=== PATIENT | male | born 1960 | race Caucasian/White ===

== ENCOUNTER 2018-05-31 12:15 | Emergency (ER) | payer BC ==
--- NOTE | 2018-05-31 12:24 | EDM.PDOC ---
ED HPI GENERAL MEDICAL PROBLEM - General Chief Complaint: Neck Problem Stated Complaint: PAIN IN NECK DOWN BACK Time Seen by Provider: 05/31/18 12:16 Source of Information: Reports: Patient History Limitations: Reports: No Limitations - History of Present Illness INITIAL COMMENTS - FREE TEXT/NARRATIVE: HISTORY AND PHYSICAL: History of present illness: Patient is a 57-year-old male who presents to the emergency room with complaints of low neck pain that radiates into his right shoulder and down the arm. He states he has noticed this discomfort for approximately 6 months that has progressively become more frequent and more bothersome. Over the past several days he states that this is extremely uncomfortable and decided to get evaluated. He denies any injury, trauma or recent falls. Review of systems: As per history of present illness and below otherwise all systems reviewed and negative. Past medical history: As per history of present illness and as reviewed below otherwise noncontributory. Surgical history: As per history of present illness and as reviewed below otherwise noncontributory. Social history: See social history for further information Family history: As per history of present illness and as reviewed below otherwise noncontributory. Physical exam: General: HEENT: Atraumatic, normocephalic, pupils equal and reactive bilaterally, negative for conjunctival pallor or scleral icterus, mucous membranes moist, throat clear, neck supple, nontender, trachea midline. No drooling or trismus noted. No meningeal signs Lungs: Clear to auscultation, breath sounds equal bilaterally, chest nontender. Heart: S1S2, regular rate and rhythm without overt murmur Abdomen: Soft, nondistended, nontender. Negative for masses or hepatosplenomegaly. Negative for costovertebral tenderness. Pelvis: Stable nontender. Genitourinary: Deferred. Rectal: Deferred. Skin: Intact, warm, dry. No lesions or rashes noted. Extremities: Atraumatic, moves all extremities without difficulty or deficits, full range of motion, negative for cords or calf pain. Neurovascular unremarkable. C-spine/Back: No pinpoint vertebral tenderness upon palpation. No crepitus, step -offs or obvious deformities. Patient is ambulatory without any difficulty or deficits. He denies any urinary or fecal incontinence. Denies any numbness or tingling to his distal extremities. He has full strength and range of motion of all extremities. Does have some muscular tenderness to the right trapezius muscle into the shoulder/scapular area. Neuro: Awake, alert, oriented. Cranial nerves II through XII unremarkable. Cerebellum unremarkable. Motor and sensory unremarkable throughout. Exam nonfocal. Notes: Patient did get some relief with the IM injections. CT shows mild degenerative changes without any acute findings. I did discuss the limitations of diagnostics through the emergency room and encouraged him to follow-up with his primary care provider. He states he does go home to [place] the following week and will follow up with his primary care provider for further evaluation and management. Concerned he may have possible nerve impingement or muscular strain. Supportive care measures were reviewed and discussed. Signs and symptoms that would prompt him to return to the emergency room were reviewed and discussed. Diagnostics: C-spine CT Therapeutics: Solu-Medrol IM, Toradol. Prescription: Medrol Dosepak Flexeril (#21) Impression: Neck Pain Muscular Strain, neck Plan: 1. Gentle heat and stretching to the area. 2. Take your medications as prescribed. Flexeril may cause drowsiness a do not take it'll driving her needing to be functioning outside of the house. 3. Please follow up with your primary care provider in the next 1-2 days. Return to the ED as needed and as discussed. Definitive disposition and diagnosis as appropriate pending reevaluation and review of above. Duration: Chronic Location: Reports: Neck RIght shoulder Pain Score (Numeric/FACES): 6 - Related Data Allergies Allergy/AdvReac Type Severity Reaction Status Date / Time No Known Allergies Allergy Verified 05/31/18 12:32 Home Meds: Home Meds Gabapentin [Neurontin] 600 mg PO TID 05/31/18 [History] ED ROS GENERAL - Review of Systems Review Of Systems: ROS reveals no pertinent complaints other than HPI. ED EXAM, UPPER BACK/NECK PAIN - Physical Exam Exam: See Below (See dictation) Course - Vital Signs Last Recorded V/S: Last Vital Signs Temp 97.8 F 05/31/18 12:30 Pulse 75 05/31/18 12:30 Resp 18 05/31/18 12:30 BP 181/104 H 05/31/18 12:30 Pulse Ox 94 L 05/31/18 12:30 - Orders/Labs/Meds Meds: Medications Discontinued Medications Generic Name Dose Route Start Last Admin Trade Name Freq PRN Reason Stop Dose Admin Ketorolac Tromethamine 60 mg 05/31/18 12:42 05/31/18 12:50 Toradol IM 05/31/18 12:43 60 mg ONETIME ONE Administration Methylprednisolone Sodium Succinate 125 mg 05/31/18 12:42 05/31/18 12:50 Solu-Medrol IM 05/31/18 12:43 125 mg ONETIME ONE Administration Departure - Departure Time of Disposition: 13:42 Disposition: Home, Self-Care 01 Clinical Impression: Neck pain Neck muscle strain Qualifiers: Encounter type: initial encounter Qualified Code(s): S16.1XXA - Strain of muscle, fascia and tendon at neck level, initial encounter - Discharge Information Instructions: Muscle Strain, [id number] Referrals: PCP,None [Primary Care Provider] - Forms: ED Department Discharge Additional Instructions: The following information is given to patients seen in the emergency department who are being discharged to home. This information is to outline your options for follow-up care. We provide all patients seen in our emergency department with a follow-up referral. The need for follow-up, as well as the timing and circumstances, are variable depending upon the specifics of your emergency department visit. If you don't have a primary care physician on staff, we will provide you with a referral. We always advise you to contact your personal physician following an emergency department visit to inform them of the circumstance of the visit and for follow-up with them and/or the need for any referrals to a consulting specialist. The emergency department will also refer you to a specialist when appropriate. This referral assures that you have the opportunity for follow-up care with a specialist. All of these measure are taken in an effort to provide you with optimal care, which includes your follow-up. Under all circumstances we always encourage you to contact your private physician who remains a resource for coordinating your care. When calling for follow-up care, please make the office aware that this follow-up is from your recent emergency room visit. If for any reason you are refused follow-up, please contact the [facility] Emergency Department at and asked to speak to the emergency department charge nurse. [facility] [address] [place] [id number] [facility] [address] [place] [address] 1. Gentle heat and stretching to the area. 2. Take your medications as prescribed. Flexeril may cause drowsiness a do not take it'll driving her needing to be functioning outside of the house. 3. Please follow up with your primary care provider in the next 1-2 days. Return to the ED as needed and as discussed.
[2018-05-31] MEDS ORDERED: Ketorolac 60 MG/2 ML SDV IM ONE (12:42)
[2018-05-31] MEDS ORDERED: methylPREDNISolone Sodium Succinate 125 MG/2 ML SDV IM ONE (12:42)
[2018-05-31] MEDS ORDERED: Ketorolac 60 MG/2 ML SDV ONE (12:47)
[2018-05-31] MEDS ORDERED: methylPREDNISolone Sodium Succinate 125 MG/2 ML SDV ONE (12:48)
--- NOTE | 2018-05-31 13:37 | CT ---
EXAMINATION: CT cervical spine HISTORY: Pain COMPARISON: None TECHNIQUE: Axial CT imaging obtained through the cervical spine without contrast. Coronal and sagittal reconstructions obtained. FINDINGS: There is straightening of the normal cervical lordosis. Vertebral body heights appear maintained. Bone mineralization and normal. There are likely small osteophyte disc complexes noted at C4-C5 and C5-C6 with mild right uncovertebral hypertrophy at these levels. Temporomandibular joints are symmetric. Lung apices are clear. Mild atheromatous calcifications noted at the right bulb. Lung apices are clear. IMPRESSION: Mild degenerative changes without acute findings.
== END 2018-05-31 13:55 | disposition home or self-care (01) ==
LOC: MW.ED 12:15
DX: S16.1XXA Strain of muscle, fascia and tendon at neck level, initial encounter (principal); X58.XXXA Exposure to other specified factors, initial encounter
CPT/HCPCS: 72125; 96372; 99284; J1885; J2930